=== PATIENT | female | born 1975 | race African-American/Black ===

== ENCOUNTER 2016-09-27 14:17 | Emergency (ER) | payer OTHER ==
[~2016-09-27] VITALS: Ht 167.6 cm; Wt 127.0 kg
[~2016-09-27 14:17] MED LIST: ALBU6.7H INH; ZITH250T PO
[2016-09-27 14:19] VITALS: BP 140/96; PULSE 70; RESP 24; TEMP 98.2; O2SAT 94
[2016-09-27] MEDS ORDERED: methylPREDNISolone SOD SUCC 125 MG/2 ML VIAL IM ONE (16:45)
--- NOTE | 2016-09-27 16:45 | PD ---
HPI Chief Complaint: Cold / Flu Symptoms Time Seen by Provider: 16:40 Travel History International Travel<30 days: No Contact w/Intl Traveler<30days: No Traveled to known affect area: No History of Present Illness HPI Patient is a 41-year-old female who presents emergency for evaluation of cough, chest congestion, chest tightness. Patient states that the symptoms started on Sunday. She states that she has vomited a few times with coughing spells, additionally she has vomited with the coughing spells. She reports yellow to green mucus production, sinus pressure. Patient denies any fevers but reports chills. Patient endorses a 26 year smoking history. She denies any diagnosis of COPD or asthma but states she gets frequent bronchitis. [facility] Past Medical History Diminished Hearing: No Gastrointestinal Disorders: No Hypertension: Yes Reproductive: Yes (GENITAL HERPES, PELVIC INFLAMMATORY DISEASE) Respiratory: Yes (BRONCHITIS) Immunizations Current: Yes ?: Not LMP: 09/25/16 : 3 Para: 2 Miscarriage: 0 : 1 Tubal Ligation: Yes Past Surgical History Section: Yes Other Surgery: Yes (SPINAL STEROID INJECTION) Social History Alcohol Use: Yes (occasional) Tobacco Use: Yes Substance Use: Yes (marijuana) Allergies-Medications (Allergen,Severity, Reaction): Coded Allergies: Dilaudid (Verified Allergy, Severe, THROAT SWELLING, HIVES, 09/27/16) Reported Meds & Prescriptions Reported Meds & Active Scripts Active Proventil Hfa 6.7 GM Inh (Albuterol Sulfate) 90 Mcg/Act Aer 2 Puff INH Q6H PRN Zithromax (Azithromycin) 250 Mg Tab 250 Mg PO DIRECTED Take 2 tabs (500 mg) on day 1 then 1 tab daily x 4 days. Review of Systems Except as stated in HPI: all other systems reviewed are Neg General / Constitutional: Positive: Chills, No: Fever Eyes: No: Visual changes HENT: Positive: Congestion, No: Headaches Cardiovascular: No: Chest Pain or Discomfort Respiratory: Positive: Cough, Shortness of Breath, Wheezing Gastrointestinal: Positive: Vomiting, No: Nausea, Diarrhea, Abdominal Pain Musculoskeletal: No: Myalgias Neurologic: No: Dizziness, Syncope Physical Exam Narrative GENERAL: Overweight, well-developed, alert female. Resting comfortably in no acute distress. SKIN: Warm and dry. HEAD: Atraumatic. Normocephalic. EYES: Pupils equal and round. No scleral icterus. No injection or drainage. ENT: No nasal bleeding or discharge. Mucous membranes pink and moist. NECK: Trachea midline. No JVD. CARDIOVASCULAR: Regular rate and rhythm. RESPIRATORY: Expiratory wheezing throughout, no nasal flaring, no accessory muscle use, no retractions. GASTROINTESTINAL: Abdomen soft, non-tender, nondistended. Hepatic and splenic margins not palpable. MUSCULOSKELETAL: Extremities without clubbing, cyanosis, or edema. No obvious deformities. NEUROLOGICAL: Awake and alert. No obvious cranial nerve deficits. Motor grossly within normal limits. Five out of 5 muscle strength in the arms and legs. Normal speech. PSYCHIATRIC: Appropriate mood and affect; insight and judgment normal. Data Data Last Documented VS Vital Signs Date Time Temp Pulse Resp B/P Pulse Ox O2 Delivery O2 Flow Rate FiO2 09/27/16 16:46 22 98 Room Air 09/27/16 14:19 98.2 70 140/96 Orders Iv Access Insert/Monitor (09/27/16 16:37) Ecg Monitoring (09/27/16 16:37) Oximetry (09/27/16 16:37) Oxygen Administration (09/27/16 16:37) Chest, Pa & Lat (09/27/16 16:37) Methylprednisolone So Succ Inj (Solumedr (09/27/16 16:45) Albuterol-Ipratropium Neb (Duoneb Neb) (09/27/16 16:45) MDM Medical Decision Making Medical Screen Exam Complete: Yes Emergency Medical Condition: Yes Interpretation(s) Vital Signs Date Time Temp Pulse Resp B/P Pulse Ox O2 Delivery O2 Flow Rate FiO2 09/27/16 14:19 98.2 70 24 140/96 94 Room Air Differential Diagnosis Bronchitis versus pneumonia versus viral syndrome versus other Narrative Course Patient is a 41-year-old female who presents emergency department for evaluation of cough and chest congestion. Symptoms started 2 days ago. Patient is afebrile, her vital signs are stable, she is well oxygenated on room air with a sat of 98%. Chest x-ray shows no acute disease, patient was given DuoNeb 3 and reports improvement in her symptoms. She was also given Solu- Medrol IM. Patient was encouraged to avoid further tobacco use, she was given prescriptions for albuterol nebulizers, and nebulizer machine, prednisone, and amoxicillin. She was encouraged to follow-up with her primary doctor in 24-48 hours. She was encouraged to return to emergency department for any new or worsening symptoms. Patient verbalized understanding of these instructions. Patient stable for discharge. Diagnosis Primary Impression: Acute bronchitis Qualified Code: J20.9 - Acute bronchitis, unspecified organism Referrals: Primary Care Physician 2 days Patient Instructions: Acute Bronchitis (ED), General Instructions Additional Instructions: Follow-up with your primary doctor Avoid tobacco use or marijuana use Take medications as directed Return to emergency department for any new or worsening symptoms Med/Other Pt SpecificInfo: Prescription(s) given Scripts Amoxicillin 875 Mg Mod761 Mg PO BID 10 Days Ref 0 Prov:Yazmin MonetP 09/27/16 Prednisone 50 Mg Tab50 Mg PO DAILY #5 TAB Ref 0 Prov:Yazmin Monet 09/27/16 Albuterol Neb 0.63 Mg/3 Ml Neb0.63 Mg NEB QID NEB PRN (SHORTNESS OF BREATH) # 125 NEBULE Ref 0 Prov:Yazmin Monet 09/27/16 Nebulizer/Adult Mask 1 Kit Kit #1 KIT .ROUTE DIRECTED Ref 0 Prov:Yazmin Monet 09/27/16 Nebulizer 1 Mis Mis #1 EA .ROUTE DIRECTED Ref 0 Prov:Yazmin Monet 09/27/16 Yazmin Monet Sep 27, 2016 16:45
[2016-09-27 16:46] VITALS: RESP 22; O2SAT 98
[2016-09-27] MEDS: RESP: ALBUTEROL 2.5 MG/IPRATROPIUM 0.5 MG NEB (SCH) INH ×2 (16:49→16:50)
--- NOTE | 2016-09-27 18:12 | RADRPT ---
EXAM DATE/TIME: 09/27/2016 17:50 [facility] COMPARISON: No previous studies available for comparison. INDICATIONS : Short of breath. MEDICAL HISTORY : None. SURGICAL HISTORY : None. ENCOUNTER: Initial ACUITY: 3 days PAIN SCORE: 5/10 LOCATION: Left chest FINDINGS: PA and lateral views of the chest demonstrate the lungs to be symmetrically aerated without evidence of mass, infiltrate or effusion. The cardiomediastinal contours are unremarkable. Osseous structure s are intact. CONCLUSION: No acute disease. Linden Harrington MD on September 27, 2016 at 18:11 Board Certified Radiologist. This report was verified electronically.
[2016-09-27] MEDS ORDERED: NEBULIZER1 MI1 (18:36)
[2016-09-27] MEDS ORDERED: ALBU0.63 NEB (18:36)
[2016-09-27] MEDS ORDERED: NEBULIZER/ADULT1 KIT (18:36)
[2016-09-27] MEDS ORDERED: AMOX875T PO (18:36)
[2016-09-27] MEDS ORDERED: PRED50 PO (18:36)
[2016-09-27 18:58] VITALS: BP 132/85
== END 2016-09-27 18:58 | disposition home or self-care (01) ==
LOC: NEPE 14:17
DX: J20.9 Acute bronchitis, unspecified (principal); R07.89 Other chest pain; R11.10 Vomiting, unspecified; I10 Essential (primary) hypertension; Z72.0 Tobacco use; Z87.42 Personal history of other diseases of the female genital tract; Z87.09 Personal history of other diseases of the respiratory system
CPT/HCPCS: 71020; 94640; 94664; 96372; 99283; J2930

== ENCOUNTER 2017-06-29 15:07 | Emergency (ER) | payer SELFPAY ==
[~2017-06-29] VITALS: Ht 167.6 cm; Wt 120.0 kg
[~2017-06-29 15:07] MED LIST changes: +ALBU0.63 NEB; +AMOX875T PO; +NEBULIZER/ADULT1 KIT; +NEBULIZER1 MI1; +PRED50 PO
[2017-06-29 15:09] VITALS: BP 140/98; PULSE 80; RESP 14; TEMP 98.2; O2SAT 98
== END 2017-06-29 17:49 | disposition left against medical advice (07) ==
LOC: NED 15:07
DX: R68.89 Other general symptoms and signs (principal)
CPT/HCPCS: 99281

== ENCOUNTER 2017-08-02 11:29 | Emergency (ER) | payer SELFPAY ==
[~2017-08-02] VITALS: Ht 167.6 cm; Wt 100.0 kg
[2017-08-02 11:33] VITALS: BP 166/114; PULSE 76; RESP 20; TEMP 98; O2SAT 97
[2017-08-02] MEDS ORDERED: ZITH250T PO (12:13)
[2017-08-02] MEDS ORDERED: PRED50 PO ×2 (12:13→12:15)
[2017-08-02] MEDS ORDERED: ALBU6.7H INH (12:13)
[2017-08-02] MEDS ORDERED: BENZ100 PO (12:15)
--- NOTE | 2017-08-02 12:16 | PD ---
HPI Chief Complaint: Cold / Flu Symptoms Time Seen by Provider: 12:09 Travel History International Travel<30 days: No Contact w/Intl Traveler<30days: No Traveled to known affect area: No History of Present Illness HPI 42 yo F complains of cough dry and wet for 45 days, white pasty phlegm at times. Slight chest pain from coughing. This morning pt coughed quite frequently for 6 hours today. Occasional dyspnea. PT reports hx bronchitis. + Fever to 103 yesterday. + Smoking until quitting 5 days prior. + Bilateral ST x 45 days. PFSH Past Medical History Cardiovascular Problems: Yes (HTN) Diminished Hearing: No Gastrointestinal Disorders: No Genitourinary: Yes (pid) Hypertension: Yes Reproductive: Yes (GENITAL HERPES, PELVIC INFLAMMATORY DISEASE) Respiratory: Yes (BRONCHITIS) Immunizations Current: Yes ?: Not : 3 Para: 2 Miscarriage: 0 : 1 Tubal Ligation: Yes Past Surgical History Section: Yes Other Surgery: Yes (SPINAL STEROID INJECTION) Social History Alcohol Use: Yes (occasional) Tobacco Use: Yes Substance Use: Yes (marijuana) Allergies-Medications (Allergen,Severity, Reaction): Coded Allergies: hydromorphone (Unverified Allergy, Severe, THROAT SWELLING, HIVES, 04/24/17 ) Reported Meds & Prescriptions Reported Meds & Active Scripts Active Tessalon Perles (Benzonatate) 100 Mg Cap 100 Mg PO TID PRN Prednisone 50 Mg Tab 50 Mg PO DAILY Proventil Hfa 6.7 GM Inh (Albuterol Sulfate) 90 Mcg/Act Aer 2 Puff INH Q6H PRN Zithromax (Azithromycin) 250 Mg Tab 250 Mg PO DIRECTED Take 2 tabs (500 mg) on day 1 then 1 tab daily x 4 days. Amoxicillin 875 Mg Tab 875 Mg PO BID 10 Days Albuterol Neb (Albuterol Sulfate) 0.63 Mg/3 Ml Neb 0.63 Mg NEB QID NEB PRN Nebulizer/Adult Mask (N/A) 1 Kit Kit 1 Kit .ROUTE DIRECTED Nebulizer 1 Mis Mis 1 Ea .ROUTE DIRECTED Review of Systems General / Constitutional: Positive: Fever HENT: Positive: Sore Throat Respiratory: Positive: Cough, Wheezing Physical Exam Narrative GENERAL: 42 yo F, WNWD, NAD SKIN: Warm and dry. HEAD: Normocephalic. THROAT: No tonsillar exudate or erythema. No PRACTICE BUSINESS ASST. EYES: No scleral icterus. No injection or drainage. NECK: Supple, trachea midline. No JVD or lymphadenopathy. CARDIOVASCULAR: Regular rate and rhythm without murmurs, gallops, or rubs. RESPIRATORY: Breath sounds equal bilaterally. No accessory muscle use. Trace wheezing bilaterally. Data Data Last Documented VS Vital Signs Date Time Temp Pulse Resp B/P (MAP) Pulse Ox O2 Delivery O2 Flow Rate FiO2 08/02/17 12:44 08/02/17 12:05 16 99 Room Air 08/02/17 11:33 98.0 76 VS reviewed Orders Orders Ed Discharge Order (08/02/17 12:18) Dexamethasone Inj (Decadron Inj) (08/02/17 12:30) Azithromycin (Zithromax) (08/02/17 12:30) Albuterol Hfa Inh (Proair Hfa Inh) (08/02/17 12:30) MDM Medical Decision Making Medical Screen Exam Complete: Yes Emergency Medical Condition: Yes Medical Record Reviewed: Yes Differential Diagnosis bronchitis, asthma, COPD, pna Narrative Course presentation concerning for atypical pneumonia or copd/asthma type process PE/ACS, etc are considered reasonably safely excluded Pharynigits likely postnasal drip Pt encouraged to continue smoking cessation efforts scripts as below return precautions discussed Diagnosis Primary Impression: Acute bronchitis Qualified Codes: J20.9 - Acute bronchitis, unspecified Additional Impression: Pharyngitis Qualified Codes: J02.9 - Acute pharyngitis, unspecified Referrals: [facility] 2 days Med/Other Pt SpecificInfo: Prescription(s) given Scripts Benzonatate (Tessalon Perles) 100 Mg Cap 100 MG PO TID Y for COUGH, #10 CAP 0 Refills Prov: Kb Navarro MD 08/02/17 Albuterol 6.7 GM Inh (Proventil Hfa 6.7 GM Inh) 90 Mcg/Act Aer 2 PUFF INH Q6H Y for SHORTNESS OF BREATH, #1 INHALER 0 Refills Prov: Kb Navarro MD 08/02/17 Azithromycin (Zithromax) 250 Mg Tab 250 MG PO DIRECTED for Infection, #6 TAB 0 Refills Take 2 tabs (500 mg) on day 1 then 1 tab daily x 4 days. Prov: Kb Navarro MD 08/02/17 Disposition: 01 DISCHARGE HOME Condition: Stable Kb Navarro MD Aug 02, 2017 12:16
[2017-08-02] MEDS ORDERED: AZITHROMYCIN 250 MG TAB PO ONE (12:30)
[2017-08-02] MEDS ORDERED: DEXAMETHASONE SOD PHOS 4 MG/ML VIAL IM ONE (12:30)
[2017-08-02] MEDS ORDERED: ALBUTEROL SULFATE 90 MCG/ACT HFA 8 GM INHALER INH ONE (12:30)
== END 2017-08-02 12:57 | disposition home or self-care (01) ==
LOC: NEPK 11:29
DX: J20.9 Acute bronchitis, unspecified (principal); R07.9 Chest pain, unspecified; I10 Essential (primary) hypertension; N73.9 Female pelvic inflammatory disease, unspecified; Z72.0 Tobacco use; Z79.51 Long term (current) use of inhaled steroids; Z79.899 Other long term (current) drug therapy; Z88.5 Allergy status to narcotic agent
CPT/HCPCS: 96372; 99284; J1100

== ENCOUNTER 2017-09-19 13:32 | Emergency (ER) | payer SELFPAY ==
[~2017-09-19] VITALS: Ht 167.6 cm; Wt 122.5 kg
[~2017-09-19 13:32] MED LIST changes: +BENZ100 PO; -PRED50 PO
[2017-09-19 13:33] VITALS: BP 177/103; PULSE 84; RESP 18; TEMP 99.1; O2SAT 98
--- NOTE | 2017-09-19 17:29 | PD ---
HPI Chief Complaint: Cold / Flu Symptoms Time Seen by Provider: 13:56 Travel History International Travel<30 days: No Contact w/Intl Traveler<30days: No Traveled to known affect area: No History of Present Illness HPI Pt is a 42-year-old female presenting to emergency department evaluation of cough, headache, nausea, diarrhea and chest congestion. Patient states his symptoms started Sunday. She reports the max temp 102 at 10:30 last night. She denies any abdominal pain, chest pain. Patient is taken any over-the- counter medications today area and her symptoms started gradually, worsening which is what prompted her visit to the emergency department. There are no alleviating factors, there are no exacerbating factors. PFSH Past Medical History Cardiovascular Problems: Yes (HTN) Diminished Hearing: No Gastrointestinal Disorders: No Genitourinary: Yes (pid) Hypertension: Yes Reproductive: Yes (GENITAL HERPES, PELVIC INFLAMMATORY DISEASE) Respiratory: Yes (BRONCHITIS) Immunizations Current: Yes ?: Not LMP: now : 3 Para: 2 Miscarriage: 0 : 1 Tubal Ligation: Yes Past Surgical History Section: Yes Other Surgery: Yes (SPINAL STEROID INJECTION) Social History Alcohol Use: Yes (occasional) Tobacco Use: Yes Substance Use: Yes (marijuana) Allergies-Medications (Allergen,Severity, Reaction): Coded Allergies: hydromorphone (Unverified Allergy, Severe, THROAT SWELLING, HIVES, 04/24/17 ) Reported Meds & Prescriptions Reported Meds & Active Scripts Active Tessalon Perles (Benzonatate) 100 Mg Cap 100 Mg PO TID PRN Proventil Hfa 6.7 GM Inh (Albuterol Sulfate) 90 Mcg/Act Aer 2 Puff INH Q6H PRN Zithromax (Azithromycin) 250 Mg Tab 250 Mg PO DIRECTED Take 2 tabs (500 mg) on day 1 then 1 tab daily x 4 days. Amoxicillin 875 Mg Tab 875 Mg PO BID 10 Days Albuterol Neb (Albuterol Sulfate) 0.63 Mg/3 Ml Neb 0.63 Mg NEB QID NEB PRN Nebulizer/Adult Mask (N/A) 1 Kit Kit 1 Kit .ROUTE DIRECTED Nebulizer 1 Mis Mis 1 Ea .ROUTE DIRECTED Review of Systems Except as stated in HPI: all other systems reviewed are Neg General / Constitutional: Positive: Fever, Chills HENT: Positive: Headaches, Congestion Cardiovascular: No: Chest Pain or Discomfort Respiratory: Positive: Cough Gastrointestinal: No: Nausea, Vomiting, Abdominal Pain Musculoskeletal: Positive: Myalgias Physical Exam Narrative GENERAL: Well-developed, well-nourished, alert female. Presenting in no acute distress SKIN: Warm and dry. HEAD: Normocephalic. EYES: No scleral icterus. No injection or drainage. CARDIOVASCULAR: Regular rate RESPIRATORY: No accessory muscle use. Data Data Last Documented VS Vital Signs Date Time Temp Pulse Resp B/P (MAP) Pulse Ox O2 Delivery O2 Flow Rate FiO2 09/19/17 16:47 09/19/17 13:33 99.1 84 18 98 Room Air MDM Medical Decision Making Medical Screen Exam Complete: Yes Emergency Medical Condition: Yes Interpretation(s) Vital Signs Date Time Temp Pulse Resp B/P (MAP) Pulse Ox O2 Delivery O2 Flow Rate FiO2 09/19/17 16:47 09/19/17 13:33 99.1 84 18 177/103 (127) 98 Room Air Differential Diagnosis Viral syndrome versus influenza versus strep pharyngitis versus other Narrative Course Patient is a 42-year-old female presenting to the emergency department for evaluation of cold of flu symptoms. Patient is awaiting bed placement. She was called to be bedded, she was no longer in the emergency department. Patient left AMA Diagnosis Primary Impression: Left against medical advice Yazmin Monet Sep 19, 2017 17:29
== END 2017-09-19 16:47 | disposition left against medical advice (07) ==
LOC: NED 13:32
DX: R51 Headache (principal); R09.89 Other specified symptoms and signs involving the circulatory and respiratory systems; R11.0 Nausea; R05 Cough; I10 Essential (primary) hypertension
CPT/HCPCS: 99281

== ENCOUNTER 2017-10-07 10:58 | Emergency (ER) | payer SELFPAY ==
[~2017-10-07] VITALS: Ht 167.6 cm; Wt 130.0 kg
[2017-10-07 10:59] VITALS: BP 130/96; PULSE 80; RESP 15; TEMP 98.1; O2SAT 97
[2017-10-07] MEDS ORDERED: SODIUM CHLORIDE 0.9% FLUSH 10 ML FLUSH IVF PRN (13:30)
--- NOTE | 2017-10-07 13:30 | PD ---
HPI Chief Complaint: Chest Pain Time Seen by Provider: 13:17 Travel History International Travel<30 days: No Contact w/Intl Traveler<30days: No Traveled to known affect area: No History of Present Illness HPI 42-year-old female presents to the emergency department for evaluation of cough , congestion, chest pain with coughing and deep breathing that started one month ago. Patient reports history of bronchitis, HTN. She states she has been running fevers for the past 2 days up to 104. She is afebrile at this time. She states she was diagnosed with pneumonia in July. She states she officially quit smoking this morning. No abdominal pain. No nausea, vomiting, diarrhea. Cough, deep breathing exacerbates pain. Resting will help alleviate pain. Moderate severity. She is not on control, reports hx of tubal ligation. No leg edema. No hemoptysis. No recent surgery or travel. PFSH Past Medical History Cardiovascular Problems: Yes (HTN) Diminished Hearing: No Gastrointestinal Disorders: No Genitourinary: Yes (pid) Hypertension: Yes Reproductive: Yes (GENITAL HERPES, PELVIC INFLAMMATORY DISEASE) Respiratory: Yes (BRONCHITIS) Immunizations Current: Yes ?: Not LMP: 09/2017 : 3 Para: 2 Miscarriage: 0 : 1 Tubal Ligation: Yes Past Surgical History Section: Yes Other Surgery: Yes (SPINAL STEROID INJECTION) Social History Alcohol Use: Yes (occasional) Tobacco Use: Yes Substance Use: Yes (marijuana) Allergies-Medications (Allergen,Severity, Reaction): Coded Allergies: hydromorphone (Unverified Allergy, Severe, THROAT SWELLING, HIVES, 10/07/17 ) Reported Meds & Prescriptions Reported Meds & Active Scripts Active Benzonatate 200 Mg Cap 200 Mg PO TID PRN Prednisone 20 Mg Tab 40 Mg PO DAILY 5 Days Tessalon Perles (Benzonatate) 100 Mg Cap 100 Mg PO TID PRN Proventil Hfa 6.7 GM Inh (Albuterol Sulfate) 90 Mcg/Act Aer 2 Puff INH Q6H PRN Zithromax (Azithromycin) 250 Mg Tab 250 Mg PO DIRECTED Take 2 tabs (500 mg) on day 1 then 1 tab daily x 4 days. Amoxicillin 875 Mg Tab 875 Mg PO BID 10 Days Albuterol Neb (Albuterol Sulfate) 0.63 Mg/3 Ml Neb 0.63 Mg NEB QID NEB PRN Nebulizer/Adult Mask (N/A) 1 Kit Kit 1 Kit .ROUTE DIRECTED Nebulizer 1 Mis Mis 1 Ea .ROUTE DIRECTED Review of Systems Except as stated in HPI: all other systems reviewed are Neg Physical Exam Narrative GENERAL: Well-nourished, well-developed female patient, ambulatory. Afebrile. SKIN: Focused skin assessment warm/dry. HEAD: Normocephalic. Atraumatic. ENT: Mucosa pink and moist. No erythema or exudates. No uvular edema. No uvular , palatal, or tonsillar deviation. Airway patent. Nasal turbinates appear normal without nasal blood, purulent drainage or septal hematoma. Bilateral tympanic membranes are clear without erythema or perforation. EYES: No scleral icterus. No injection or drainage. NECK: Supple, trachea midline. No JVD or lymphadenopathy. CARDIOVASCULAR: Regular rate and rhythm without murmurs, gallops, or rubs. RESPIRATORY: Breath sounds equal bilaterally. No accessory muscle use. Lungs sounds are clear to auscultation. GASTROINTESTINAL: Abdomen soft, non-tender, nondistended. MUSCULOSKELETAL: No cyanosis, or edema. Chest wall pain is easily reproduced with cough, movement. BACK: Nontender without obvious deformity. No CVA tenderness. Data Data Last Documented VS Vital Signs Date Time Temp Pulse Resp B/P (MAP) Pulse Ox O2 Delivery O2 Flow Rate FiO2 10/07/17 13:57 98 10/07/17 10:59 98.1 80 15 Orders Orders Electrocardiogram (10/07/17 ) Complete Blood Count With Diff (10/07/17 13:27) Basic Metabolic Panel (Bmp) (10/07/17 13:27) Ckmb (Isoenzyme) Profile (10/07/17 13:27) Troponin I (10/07/17 13:27) Influenzae A/B Antigen (10/07/17 13:27) Iv Access Insert/Monitor (10/07/17 13:27) Ecg Monitoring (10/07/17 13:27) Oximetry (10/07/17 13:27) Oxygen Administration (10/07/17 13:27) Chest, Single Ap (10/07/17 13:27) Sodium Chloride 0.9% Flush (Ns Flush) (10/07/17 13:30) Ketorolac Inj (Toradol Inj) (10/07/17 13:45) CKMB (10/07/17 13:50) CKMB% (10/07/17 13:50) Ed Discharge Order (10/07/17 14:53) Labs Laboratory Tests Test 10/07/17 13:50 White Blood Count 6.2 TH/MM3 Red Blood Count 4.83 MIL/MM3 Hemoglobin 13.1 GM/DL Hematocrit 39.4 % Mean Corpuscular Volume 81.7 FL Mean Corpuscular Hemoglobin 27.1 PG Mean Corpuscular Hemoglobin Concent 33.2 % Red Cell Distribution Width 15.6 % Platelet Count 290 TH/MM3 Mean Platelet Volume 7.9 FL Neutrophils (%) (Auto) 49.8 % Lymphocytes (%) (Auto) 34.1 % Monocytes (%) (Auto) 14.9 % Eosinophils (%) (Auto) 0.4 % Basophils (%) (Auto) 0.8 % Neutrophils # (Auto) 3.1 TH/MM3 Lymphocytes # (Auto) 2.1 TH/MM3 Monocytes # (Auto) 0.9 TH/MM3 Eosinophils # (Auto) 0.0 TH/MM3 Basophils # (Auto) 0.1 TH/MM3 CBC Comment DIFF FINAL Differential Comment Blood Urea Nitrogen 9 MG/DL Creatinine 0.78 MG/DL Random Glucose 104 MG/DL Calcium Level 8.7 MG/DL Sodium Level 137 MEQ/L Potassium Level 3.4 MEQ/L Chloride Level 104 MEQ/L Carbon Dioxide Level 25.5 MEQ/L Anion Gap 8 MEQ/L Estimat Glomerular Filtration Rate 98 ML/MIN Total Creatine Kinase 282 U/L Creatine Kinase MB LESS THAN 0.5 NG/ML Creatine Kinase MB % 0.2 % Troponin I 0.03 NG/ML MDM Medical Decision Making Medical Screen Exam Complete: Yes Emergency Medical Condition: Yes Medical Record Reviewed: Yes Differential Diagnosis Pneumonia versus URI versus bronchitis versus influenza Narrative Course 42-year-old female presents to the emergency department for evaluation of respiratory symptoms for one month. She appears well on exam. CBC, BMP, CK, troponin, and influenza, chest x-ray are ordered and pending. EKG shows sinus rhythm, heart rate 82, no acute ST changes. No risk factors for PE. CBC shows no acute abnormality. BMP shows no acute abnormality. CK is 282. Troponin is 0.03. Influenza is negative. Chest x-ray shows no acute cardiopulmonary disease. Physical and laboratory findings are reassuring. Patient will be discharged with a prescription for prednisone, benzonatate capsules. The patient was discharged in stable condition with instructions, including return instructions and follow up instructions. Diagnosis Primary Impression: Upper respiratory infection Qualified Codes: J06.9 - Acute upper respiratory infection, unspecified Referrals: Primary Care Physician 2 days Patient Instructions: General Instructions, Upper Respiratory Infection (ED) Departure Forms: Tests/Procedures, Work Release Enter return to work date: Oct 10, 2017 Additional Instructions: Take prednisone as directed until gone. Take benzonatate capsules as directed as needed for cough. Follow-up with your primary care physician. Return to the emergency department for any acute worsening of symptoms. Med/Other Pt SpecificInfo: Prescription(s) given Scripts Ibuprofen (Ibuprofen) 800 Mg Tab 800 MG PO TID Y for PAIN SCALE 1 TO 10, #21 TAB 0 Refills Prov: Rafia Wood 10/07/17 Benzonatate (Benzonatate) 200 Mg Cap 200 MG PO TID Y for COUGH, #21 CAP 0 Refills Prov: Rafia Wood 10/07/17 Prednisone (Prednisone) 20 Mg Tab 40 MG PO DAILY for 5 Days, #10 TAB 0 Refills Prov: Rafia Wood 10/07/17 Disposition: 01 DISCHARGE HOME Condition: Stable Rafia Wood Oct 07, 2017 13:30
[2017-10-07] MEDS ORDERED: KETOROLAC TROMETHAMINE 30 MG/ML (IVP) VIAL IV PUSH ONE (13:45)
[2017-10-07 13:57] VITALS: O2SAT 98
[2017-10-07 14:01] LABS: AUTOMATED NEUTROPHIL # 3.1 TH/MM3 (1.8-7.7); BASOPHIL # 0.1 TH/MM3 (0-0.2); BASOPHIL % 0.8 % (0.0-2.0); EOSINOPHIL % 0.4 % (0.0-4.0); HEMATOCRIT 39.4 % (35.0-46.0); HEMOGLOBIN 13.1 GM/DL (11.6-15.3); LYMPH % 34.1 % (9.0-44.0); LYMPHOCYTE # 2.1 TH/MM3 (1.0-4.8); MEAN CELL VOLUME 81.7 FL (80.0-100.0); MEAN CORPUSCULAR HEMOGLOBIN 27.1 PG (27.0-34.0); MEAN CORPUSCULAR HGB CONC 33.2 % (32.0-36.0); MEAN PLATELET VOLUME 7.9 FL (7.0-11.0); MONO % 14.9 % (0.0-8.0); MONOCYTE # 0.9 TH/MM3 (0-0.9); NEUT % 49.8 % (16.0-70.0); PLATELET COUNT 290 TH/MM3 (150-450); RED BLOOD COUNT 4.83 MIL/MM3 (4.00-5.30); RED CELL DISTRIBUTION WIDTH 15.6 % (11.6-17.2); WHITE BLOOD COUNT 6.2 TH/MM3 (4.0-11.0)
[2017-10-07 14:17] LABS: BICARBONATE 25.5 MEQ/L (21.0-32.0); BLOOD UREA NITROGEN 9 MG/DL (7-18); CALCIUM 8.7 MG/DL (8.5-10.1); CHLORIDE 104 MEQ/L (98-107); CREATININE 0.78 MG/DL (0.50-1.00); GLOMERULAR FILTRATION RATE 98 ML/MIN (>89); GLUCOSE,RANDOM 104 MG/DL (74-106); SODIUM (NA) 137 MEQ/L (136-145)
[2017-10-07 14:20] LABS: TROPONIN I 0.03 NG/ML (0.02-0.05)
--- NOTE | 2017-10-07 14:22 | RADRPT ---
EXAM DATE/TIME: 10/07/2017 13:48 [facility] COMPARISON: CHEST SINGLE AP, November 22, 2015, 10:08. INDICATIONS : Short of breath, anterior and posterior chest pain MEDICAL HISTORY : Hypertension. Bronchitis, pneumonia SURGICAL HISTORY : None. ENCOUNTER: Initial ACUITY: 3 days PAIN SCORE: 8/10 LOCATION: chest FINDINGS: Single AP view of the chest. The lungs are clear. Cardiomediastinal silhouette within normal limits. No evidence of pleural effusion or pneumothorax. CONCLUSION: No acute cardiopulmonary disease identified. Amos Mcdonald MD on October 07, 2017 at 14:19 Board Certified Radiologist. This report was verified electronically.
[2017-10-07] MEDS ORDERED: BENZ1CAP51 PO (14:52)
[2017-10-07] MEDS ORDERED: PRED20 PO (14:52)
[2017-10-07] MEDS ORDERED: IBUP1TAB7 PO (14:57)
--- NOTE | 2017-10-08 19:39 | EKG ---
Date Performed: 10/07/2017 Time Performed: 11:09:49 PTAGE: 42 years EKG: Sinus rhythm Since previous tracing, no significant change noted NORMAL ECG PREVIOUS TRACING : 11/22/2015 09.45 DOCTOR: Abhishek Moser Interpretating Date/Time 10/08/2017 19:37:11
== END 2017-10-07 16:14 | disposition home or self-care (01) ==
LOC: NEPD 10:58
DX: J06.9 Acute upper respiratory infection, unspecified (principal); Z72.0 Tobacco use
CPT/HCPCS: 71045; 80048; 82550; 82552; 84484; 85025; 87804; 93005; 96374; 99285; J1885

== ENCOUNTER 2017-12-14 00:01 | Emergency (ER) | payer SELFPAY ==
[~2017-12-14] VITALS: Ht 167.6 cm; Wt 127.0 kg
[~2017-12-14 00:01] MED LIST changes: +BENZ1CAP51 PO; +IBUP1TAB7 PO; +PRED20 PO
[2017-12-14 01:01] VITALS: BP 159/92; PULSE 78; RESP 18; TEMP 98.3; O2SAT 96
[2017-12-14 01:57] VITALS: BP 119/70; PULSE 78; RESP 18; O2SAT 98
--- NOTE | 2017-12-14 03:35 | PD ---
HPI Chief Complaint: Eye Problems/Injury Time Seen by Provider: 03:30 Travel History International Travel<30 days: No Contact w/Intl Traveler<30days: No Traveled to known affect area: No History of Present Illness HPI The patient is a 42-year-old female that complains of right eye drainage and irritation for 2 days. The pain is located on the medial and temporal corners of the eye. She states the pain is a 5/10 and aching pain. She has not been using warm compresses. She denies any foreign body sensation in the eye. Her left eye is noninfected. PFSH Past Medical History Asthma: Yes Depression: Yes Cardiovascular Problems: Yes (HTN) Diminished Hearing: No Gastrointestinal Disorders: No Genitourinary: Yes (pid) Hypertension: Yes Reproductive: Yes (GENITAL HERPES, PELVIC INFLAMMATORY DISEASE) Respiratory: Yes (BRONCHITIS) Immunizations Current: Yes Influenza Vaccination: No ?: Not LMP: 12/10/17 : 3 Para: 2 Miscarriage: 0 : 1 Tubal Ligation: Yes Past Surgical History Section: Yes Other Surgery: Yes (SPINAL STEROID INJECTION) Social History Alcohol Use: Yes (occasional) Tobacco Use: Yes (1 pack every 2 days) Substance Use: Yes (marijuana) Allergies-Medications (Allergen,Severity, Reaction): Coded Allergies: hydromorphone (Verified Allergy, Severe, THROAT SWELLING, HIVES, 12/14/17) Reported Meds & Prescriptions Reported Meds & Active Scripts Active Amoxicillin 500 Mg Cap 500 Mg PO TID Tobramycin Opth Drops 0.3 % Soln 1 Drop RIGHT EYE Q4H Review of Systems Except as stated in HPI: all other systems reviewed are Neg Physical Exam Narrative GENERAL: Well-nourished, well-developed patient who is asleep at the time I encounter the patient in minimal distress with her right eye discomfort. Her vital signs show initial blood pressure 159/92 but repeat blood pressure is 119/ 70 and the rest of her vital signs are normal. SKIN: Focused skin assessment warm/dry. HEAD: Normocephalic. EYES: No scleral icterus. There is minimal injection and a clear drainage in the right eye. The left eye shows no drainage but does show some minimal injection almost identical to the right eye. NECK: Supple, trachea midline. No JVD or lymphadenopathy. CARDIOVASCULAR: Regular rate and rhythm without murmurs, gallops, or rubs. RESPIRATORY: Breath sounds equal bilaterally. No accessory muscle use. GASTROINTESTINAL: Abdomen soft, non-tender, nondistended. MUSCULOSKELETAL: No cyanosis, or edema. BACK: Nontender without obvious deformity. No CVA tenderness. Data Data Last Documented VS Vital Signs Date Time Temp Pulse Resp B/P (MAP) Pulse Ox O2 Delivery O2 Flow Rate FiO2 12/14/17 02:01 18 12/14/17 01:57 78 119/70 (86) 98 12/14/17 01:01 98.3 Orders Orders Tobramycin 0.3% Opth Soln (Tobrex 0.3% O (12/14/17 03:45) Amoxicillin (Trimox) (12/14/17 04:00) Ed Discharge Order (12/14/17 03:51) [facility] Medical Decision Making Medical Screen Exam Complete: Yes Emergency Medical Condition: Yes Medical Record Reviewed: Yes Differential Diagnosis Conjunctivitis, canaliculitis, infection lacrimal duct Narrative Course The patient appears to have a minimal canaliculitis and a possible infection of the lacrimal duct. Diagnosis Primary Impression: Canaliculitis, lacrimal, acute Additional Instructions: Warm compresses are probably the most important part of the treatment. This is every 4 hours followed by the antibiotic drops. Follow-up with ophthalmology if you have any problems. Med/Other Pt SpecificInfo: Prescription(s) given Scripts Amoxicillin (Amoxicillin) 500 Mg Cap 500 MG PO TID for Infection, #30 CAP 0 Refills Prov: Donell Peguero MD 12/14/17 Tobramycin Opth Drops (Tobramycin Opth Drops) 0.3 % Soln 1 DROP RIGHT EYE Q4H for Infection, #1 BOTTLE 0 Refills Prov: Donell Peguero MD 12/14/17 Disposition: 01 DISCHARGE HOME Condition: Stable Donell Peguero MD Dec 14, 2017 03:35
[2017-12-14] MEDS ORDERED: TOBRAMYCIN SULF 0.3% OPHT SOLN 5 ML BTL RIGHT EYE ONE (03:45)
[2017-12-14] MEDS ORDERED: AMOX500C PO (03:48)
[2017-12-14] MEDS ORDERED: AK-T0.3S RIGHT EYE (03:48)
[2017-12-14] MEDS ORDERED: AMOXICILLIN 875 MG TAB PO ONE (04:00)
[2017-12-14 04:02] VITALS: BP 156/84
== END 2017-12-14 04:15 | disposition home or self-care (01) ==
LOC: PHED 00:01
DX: H04.331 Acute lacrimal canaliculitis of right lacrimal passage (principal); F12.90 Cannabis use, unspecified, uncomplicated; J45.909 Unspecified asthma, uncomplicated; F32.9 Major depressive disorder, single episode, unspecified; I10 Essential (primary) hypertension; F17.200 Nicotine dependence, unspecified, uncomplicated; Z88.5 Allergy status to narcotic agent
CPT/HCPCS: 99283

== ENCOUNTER 2018-01-07 14:35 | Emergency (ER) | payer SELFPAY ==
[~2018-01-07] VITALS: Ht 165.1 cm; Wt 122.7 kg
[~2018-01-07 14:35] MED LIST changes: +AK-T0.3S RIGHT EYE; -ALBU0.63 NEB; -ALBU6.7H INH; +AMOX500C PO; -AMOX875T PO; -BENZ100 PO; -BENZ1CAP51 PO; -IBUP1TAB7 PO; -NEBULIZER/ADULT1 KIT; -NEBULIZER1 MI1; -PRED20 PO; -ZITH250T PO
[2018-01-07 14:48] VITALS: BP 168/83; PULSE 77; RESP 20; TEMP 99; O2SAT 95
--- NOTE | 2018-01-07 15:54 | PD ---
HPI Chief Complaint: ENT Complaint Time Seen by Provider: 15:46 Travel History International Travel<30 days: No Contact w/Intl Traveler<30days: No Traveled to known affect area: No History of Present Illness HPI 42-year-old female presents for evaluation of sore throat. Symptoms started this morning. She reports pain when swallowing, no alleviating factors. 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 Denies any fevers , chills, rash, cough or congestion. She has no other complaints at this time. PFSH Past Medical History Asthma: Yes Depression: Yes Cardiovascular Problems: Yes (HTN) Diminished Hearing: No Gastrointestinal Disorders: No Genitourinary: Yes (pid) Hypertension: Yes Reproductive: Yes (GENITAL HERPES, PELVIC INFLAMMATORY DISEASE) Respiratory: Yes (BRONCHITIS) Immunizations Current: Yes ?: Not : 3 Para: 2 Miscarriage: 0 : 1 Tubal Ligation: Yes Past Surgical History Section: Yes Other Surgery: Yes (SPINAL STEROID INJECTION) Social History Alcohol Use: Yes (occasional) Tobacco Use: Yes (1 pack every 2 days) Substance Use: Yes (marijuana) Allergies-Medications (Allergen,Severity, Reaction): Coded Allergies: hydromorphone (Verified Allergy, Severe, THROAT SWELLING, HIVES, 12/14/17) Reported Meds & Prescriptions Reported Meds & Active Scripts Active Prednisone 20 Mg Tab 20 Mg PO BID 5 Days Amoxicillin 875 Mg Tab 875 Mg PO BID 10 Days Amoxicillin 500 Mg Cap 500 Mg PO TID Tobramycin Opth Drops 0.3 % Soln 1 Drop RIGHT EYE Q4H Review of Systems Except as stated in HPI: all other systems reviewed are Neg Physical Exam Narrative GENERAL: Well-developed well-nourished female no acute distress SKIN: Warm and dry. HEAD: Atraumatic. Normocephalic. EYES: Pupils equal and round. No scleral icterus. No injection or drainage. ENT: No nasal bleeding or discharge. Mucous membranes pink and moist. Significant oral pharyngeal erythema, tonsillar hypertrophy and exudate formation. Uvula is midline with no mass-effect. NECK: Trachea midline. No JVD. No lymphadenopathy. CARDIOVASCULAR: Regular rate and rhythm. No murmur appreciated. RESPIRATORY: No accessory muscle use. Clear to auscultation. Breath sounds equal bilaterally. MUSCULOSKELETAL: No obvious deformities. No clubbing. No cyanosis. No edema. NEUROLOGICAL: Awake and alert. No obvious cranial nerve deficits. Motor grossly within normal limits. Normal speech. Data Data Last Documented VS Vital Signs Date Time Temp Pulse Resp B/P (MAP) Pulse Ox O2 Delivery O2 Flow Rate FiO2 01/07/18 14:48 99.0 77 20 168/83 (111) 95 Orders Orders Dexamethasone Inj (Decadron Inj) (01/07/18 16:00) Ketorolac Inj (Toradol Inj) (01/07/18 16:00) Group A Rapid Strep Screen (01/07/18 15:46) Iv Access Insert/Monitor (01/07/18 15:46) Sodium Chlor 0.9% 1000 Ml Inj (Ns 1000 M (01/07/18 15:46) Ketorolac Inj (Toradol Inj) (01/07/18 16:30) Amoxicillin (Trimox) (01/07/18 18:00) Ed Discharge Order (01/07/18 18:01) MDM Medical Decision Making Medical Screen Exam Complete: Yes Emergency Medical Condition: Yes Medical Record Reviewed: Yes Differential Diagnosis Tonsillitis, peritonsillar abscess, exudative pharyngitis, infectious mononucleosis Narrative Course 42-year-old female here with 1 day history of sore throat. Rapid strep screen ordered. The patient will be given IV fluids, Toradol and Decadron. Rapid strep screen is positive. Upon reexamination the patient reports significant improvement in symptoms. She will be started on amoxicillin, prednisone. Diagnosis Primary Impression: Streptococcal tonsillitis Departure Forms: Tests/Procedures, Work Release Enter return to work date: January 11, 2018 Additional Instructions: Medication as prescribed. Take Tylenol Motrin for pain and fever per dosing instructions on the bottle. Stay well hydrated and well-nourished. Return for any emergent medical conditions. Med/Other Pt SpecificInfo: Prescription(s) given Scripts Prednisone (Prednisone) 20 Mg Tab 20 MG PO BID for 5 Days, #10 TAB 0 Refills Prov: Kb Navarro MD 01/07/18 Amoxicillin (Amoxicillin) 875 Mg Tab 875 MG PO BID for Infection for 10 Days, #20 TAB 0 Refills Prov: Kb Navarro MD 01/07/18 Disposition: 01 DISCHARGE HOME Condition: Stable Alonzo Padron Jan 07, 2018 15:54
[2018-01-07] MEDS ORDERED: KETOROLAC TROMETHAMINE 30 MG/ML (IVP) VIAL IV PUSH ONE ×2 (16:00→16:30)
[2018-01-07] MEDS ORDERED: DEXAMETHASONE SOD PHOS 4 MG/ML VIAL IV PUSH ONE (16:00)
[2018-01-07] MEDS: SODIUM CHLOR 0.9% 1000 ML INJ 1,000 ML IV SCH ×2 (17:01→18:04)
[2018-01-07] MEDS ORDERED: AMOX875T PO (17:59)
[2018-01-07] MEDS ORDERED: PRED20 PO (17:59)
[2018-01-07] MEDS ORDERED: AMOXICILLIN 875 MG TAB PO ONE (18:00)
== END 2018-01-07 18:18 | disposition home or self-care (01) ==
LOC: NEPK 14:35
DX: J03.00 Acute streptococcal tonsillitis, unspecified (principal); F12.90 Cannabis use, unspecified, uncomplicated; F17.200 Nicotine dependence, unspecified, uncomplicated
CPT/HCPCS: 87880; 96361; 96374; 96375; 99284; J1100; J1885; J7030